=== PATIENT | female | born 1980 | race Hispanic/Latino ===

== ENCOUNTER → 2024-08-20 10:22 | Outpatient (REF) | payer OTHER, SELFPAY ==
[2024-08-29 03:23] LABS: HPV, High Risk Not Detected; HPV, High Risk Source Cervical
== END ==
LOC: CLINIC 10:22
PROVIDERS: ATTENDING PHYSICIAN Nurse Practitioner Adult Health
DX: Z12.4 Encounter for screening for malignant neoplasm of cervix (principal)
CPT/HCPCS: 87624

== ENCOUNTER → 2024-08-28 07:24 | Outpatient (REF) | payer OTHER, SELFPAY ==
[2024-08-28 08:09] LABS: Hematocrit 35.5 % (37.0-47.0); Hemoglobin 12.2 g/dL (12.0-16.0); Mean Corp Hgb Conc. 34.4 g/dL (33.0-37.0); Mean Corpuscular Hgb 31.8 pg (27.0-31.0); Mean Corpuscular Volume 92.4 fL (81.0-99.0); Mean Platelet Volume 10.6 fL (7.4-10.4); Platelet Count 229 10^3/uL (130-400); Red Blood Cell Count 3.84 10^6/uL (4.20-5.40); Red Cell Dist. Width 11.9 % (11.5-14.5); White Blood Cell Count 7.4 10^3/uL (4.8-10.8)
[2024-08-28 08:39] LABS: ALT (SGPT) 30 U/L (0-35); AST (SGOT) 25 U/L (14-36); Albumin 4.3 g/dl (3.5-5.0); Alkaline Phosphatase 64 U/L (38-126); Blood Urea Nitrogen 13 mg/dl (7-17); Calcium 9.1 mg/dl (8.4-10.2); Carbon Dioxide 23 mmol/L (22-30); Chloride 107 mmol/L (98-107); Glucose 94 mg/dl (70-99); HDL Cholesterol 37 mg/dl; LDL Cholesterol, Calculated 135 mg/dl; Potassium 4.2 mmol/L (3.5-5.1); Sodium 138 mmol/L (135-145); Total Bilirubin 0.7 mg/dl (0.2-1.3); Total Cholesterol 195 mg/dl (50-199); Total Protein 7.4 g/dl (6.3-8.2); Triglyceride 116 mg/dl (10-149); Very Low Density Lipoprotein 23 mg/dl (0-30); eGFR > 60.00
[2024-08-28 09:04] LABS: TSH Reflex To Free T4 1.28 uIU/ml (0.47-4.68)
[2024-08-28 10:27] LABS: Glycohemoglobin (HgbA1c) 5.5 % (4.0-5.6)
== END ==
LOC: CLINIC 07:24
PROVIDERS: ATTENDING PHYSICIAN Nurse Practitioner Adult Health
DX: Z00.00 Encounter for general adult medical examination without abnormal findings (principal); Z83.3 Family history of diabetes mellitus; M54.16 Radiculopathy, lumbar region
CPT/HCPCS: 36415; 72110; 80053; 80061; 83036; 84443; 85027

== ENCOUNTER → 2024-09-21 17:49 | Outpatient (REF) | payer OTHER, SELFPAY | LOC: WDC 17:49 | PROVIDERS: ATTENDING PHYSICIAN Nurse Practitioner Adult Health | DX: Z12.31 Encounter for screening mammogram for malignant neoplasm of breast (principal) | CPT/HCPCS: 77063; 77067 ==

== ENCOUNTER → 2025-01-05 11:42 | Outpatient (REF) | payer OTHER, SELFPAY | LOC: CLINIC 11:42 | PROVIDERS: ATTENDING PHYSICIAN Nurse Practitioner Adult Health | DX: R07.81 Pleurodynia (principal) | CPT/HCPCS: 71046 ==